=== PATIENT | female | born 1960 | race Caucasian/White ===

== ENCOUNTER → 2019-07-16 09:59 | Outpatient (CLI) | payer BC ==
--- NOTE | 2019-07-18 12:59 | EC ---
PATIENT:ANDRAE ROCA DATE OF SERVICE: 07/16/19 SEX: F MEDICAL RECORD: [id number] DATE OF : 58 LOCATION:[facility] AGE OF PATIENT: 59 ADMISSION DATE: 07/16/19 REFERRING PHYSICIAN: INTERPRETING PHYSICIAN: ROSA QUIJANO MD ECHOCARDIOGRAM REPORT ECHO CHARGES 4 ECHO COMPLETE Date: 07/16/19 CLINICAL DIAGNOSIS: ATYPICAL CP H/O HTN/CAD ECHOCARDIOGRAPHIC MEASUREMENTS (adult normal given) AC root (d.<3.7cm) 2.5 cm LV Septum d (<1.2 cm> 1.4 cm Valve Excursion 1.9 cm LV Septum (systole) 2.2 cm Left Atria (s.<4.0cm> 4.0 cm LVPW d(<1.2cm) 0.9 cm RV (d.<2.3cm) 2.0 cm LVPW (sytole) 1.6 cm LV diastole(<5.6CM) 5.2 cm MV E-F(>70mm/sec) cm LV systole 3.4 cm LVOT Diameter 1.8 cm MV exc.(>10mm) cm Est.ejection fraction (50-75%) % DOPPLER: LVIT cm/sec A 79.0 cm/sec E 61.0 cm/sec LA cm/sec RVSP 18.0 mmHg LVOT 136 cm/sec AOP1/2T m/s Asc. Ao 144 cm/sec RVOT 62.0 cm/sec RA cm/sec PA 83.0 cm/sec AV Gradient Peak 8.3 mmHg AV Mean 4.6 mmHg AV Area 2.0 cm MV Gradient Peak 4.9 mmHg MV Mean 1.4 mmHg MV Area cm COMMENTS: OP - HC Patient Information Coordinator: 1 MONICO JUAN Medical Staffing Coordinator: 3 Dr. Alejandre TAPE# PACS Pericardial Effusion N DATE OF SERVICE: Adequate 2-D, color flow imaging, and spectral Doppler, and M-mode. LVH is present. LV internal dimensions are normal. Wall motion is normal. EF is greater than or equal to 55%. Aortic valve is tricuspid. No evidence of stenosis by Doppler interrogation. Left atrium is upper limits of normal at 4.0 cm. Mitral valve shows no prolapse. Mild plus MR. Right-sided chambers are grossly normal. Trace TR. ECHOCARDIOGRAM REPORT [id number] ANDRAE ROCA TRANSINT:[id number] Voice Confirmation ID: [id number] DOCUMENT ID: [id number] ROSA QUIJANO MD at 1259 CC: [id number] DICTATION DATE: 07/17/191437 SOLAR PROCESS ENGINEER: 07/17/19 2317 DEP CLI 07/16/19 [place] [id number] [place] [id number]
== END | disposition home or self-care (01) ==
LOC: D.HCCECHO 09:59
PROVIDERS: ATTEND Internal Medicine Interventional Cardiology
DX: I10 Essential (primary) hypertension (principal)